=== PATIENT | male | born 1960 | race Caucasian/White ===

== ENCOUNTER 2021-07-14 09:42 | Emergency (ER) | payer BC ==
[~2021-07-14] VITALS: Ht 162.6 cm; Wt 72.0 kg
[2021-07-14 09:55] VITALS: BP 150/82
[2021-07-14 11:08] LABS: BASOPHILS % 0.4 % (0.0-2.0); EOSINOPHILS % 1.2 % (0.0-5.0); HEMATOCRIT. 37.7 % (42.0-52.0); LYMPHOCYTES % 24.2 % (20.0-50.0); MEAN CORPUSCULAR HEMOGLOBIN 29.6 pg (28.0-32.0); MEAN CORPUSCULAR VOLUME 86.3 fL (80.0-94.0); MEAN PLATELET VOLUME 6.8 fl (7.4-10.4); MONOCYTES % 3.7 % (2.0-8.0); NEUTROPHILS % 70.5 % (40.0-76.0); PLATELET 441 x1000/uL (130-400); RED BLOOD CELL COUNT 4.37 mill/uL (4.7-6.1); RED CELL DISTRIBUTION WIDTH 13.4 % (11.6-14.6)
[2021-07-14 11:14] LABS: CHLORIDE 103 mEq/L (98-107)
[2021-07-14 11:20] LABS: CLARITY URINE CLEAR (CLEAR); COLOR URINE YELLOW (YELLOW); KETONES URINE NEGATIVE (NEGATIVE); LEUKOCYTE ESTERASE URINE NEGATIVE (NEGATIVE); NITRITE URINE NEGATIVE (NEGATIVE); OCCULT BLOOD URINE TRACE (NEGATIVE); PROTEIN URINE TRACE (NEGATIVE); SPECIFIC GRAVITY URINE 1.018 (1.005-1.030)
[2021-07-14 11:59] LABS: *AMPHETAMINES SCREEN URINE NEGATIVE (NEGATIVE)
[2021-07-14 12:00] LABS: *BARBITURATES SCREEN URINE NEGATIVE (NEGATIVE); *BENZODIAZEPINES SCREEN URINE NEGATIVE (NEGATIVE); *COCAINE SCREEN URINE NEGATIVE (NEGATIVE); CANNABINOID URINE SCREEN NEGATIVE (NEGATIVE); METHADONE URINE SCREEN NEGATIVE (NEGATIVE); OPIATES URINE SCREEN NEGATIVE (NEGATIVE); PHENCYCLIDINE URINE SCREEN NEGATIVE (NEGATIVE)
[2021-07-14] MEDS ORDERED: VISCOUS LIDOCAINE 2% 15 ML UDC MM STA (15:16)
[2021-07-14] MEDS ORDERED: MAGNESIUM/ALUMINUM HYDROXIDE/SIMETHICONE 30ML UDC PO ONE (15:30)
[2021-07-14] MEDS ORDERED: OMEP20CA14 MT (15:32)
== END 2021-07-14 15:45 | disposition home or self-care (01) ==
LOC: ER 09:42
DX: R10.12 Left upper quadrant pain (principal); I10 Essential (primary) hypertension; E87.1 Hypo-osmolality and hyponatremia; D64.9 Anemia, unspecified; R79.89 Other specified abnormal findings of blood chemistry; Z88.0 Allergy status to penicillin; E78.00 Pure hypercholesterolemia, unspecified
CPT/HCPCS: 36415; 74176; 76700; 80053; 80305; 81003; 85025; 99285

== ENCOUNTER 2021-07-27 10:38 | Inpatient (IN) | payer BC ==
[~2021-07-27] VITALS: Ht 162.6 cm; Wt 68.0 kg
[~2021-07-27 10:38] MED LIST: OMEP20CA14 MT
[2021-07-27 11:34] LABS: BASOPHILS % 0.6 % (0.0-2.0); EOSINOPHILS % 1.1 % (0.0-5.0); HEMATOCRIT. 36.7 % (42.0-52.0); HEMOGLOBIN. 12.7 g/dL (14.0-18.0); LYMPHOCYTES % 18.8 % (20.0-50.0); MEAN CORPUSCULAR HEMOGLOBIN 29.6 pg (28.0-32.0); MEAN CORPUSCULAR VOLUME 85.4 fL (80.0-94.0); MEAN PLATELET VOLUME 6.9 fl (7.4-10.4); MONOCYTES % 3.6 % (2.0-8.0); NEUTROPHILS % 75.9 % (40.0-76.0); PLATELET 419 x1000/uL (130-400); RED CELL DISTRIBUTION WIDTH 13.3 % (11.6-14.6)
[2021-07-27 11:43] LABS: CHLORIDE 102 mEq/L (98-107)
[2021-07-27 11:47] LABS: ETHANOL BLOOD < 10 mg/dL
[2021-07-27 11:52] LABS: CREATINE KINASE 76 IU/L (39-308)
[2021-07-27 11:57] LABS: CLARITY URINE CLEAR (CLEAR); COLOR URINE YELLOW (YELLOW); KETONES URINE TRACE (NEGATIVE); LEUKOCYTE ESTERASE URINE NEGATIVE (NEGATIVE); NITRITE URINE NEGATIVE (NEGATIVE); OCCULT BLOOD URINE 1+ (NEGATIVE); PROTEIN URINE TRACE (NEGATIVE); SPECIFIC GRAVITY URINE 1.023 (1.005-1.030); UROBILINOGEN URINE 0.2 E.U./dL (0.2-1.0)
[2021-07-27] MEDS ORDERED: HYDROCODONE/ACETAMINOPHEN 5/325MG TABLET PO ONE (12:15)
[2021-07-27] MEDS ORDERED: IOHEXOL-350 100 ML BOTTLE ONE (13:12)
[2021-07-27] MEDS ORDERED: GADOTERATE MEGLUMINE 5 MMOL/10 ML VIAL IV ONE (14:27)
[2021-07-27] MEDS ORDERED: ACETAMINOPHEN 650MG SUPP PR PRN (16:15)
[2021-07-27] MEDS ORDERED: LORAZEPAM 0.5MG TABLET PO PRN (16:15)
[2021-07-27] MEDS ORDERED: MAGNESIUM/ALUMINUM HYDROXIDE/SIMETHICONE 30ML UDC PO PRN (16:15)
[2021-07-27] MEDS ORDERED: ONDANSETRON HCL 4MG/2ML INJ IV PRN (16:15)
[2021-07-27] MEDS ORDERED: CLONIDINE 0.1MG TABLET PO PRN (16:15)
[2021-07-27] MEDS ORDERED: ACETAMINOPHEN 325MG TABLET PO PRN (16:15)
[2021-07-27] MEDS ORDERED: GUAIFENESIN 200MG/10ML SUGAR FREE UDC PO PRN (16:15)
[2021-07-27] MEDS ORDERED: DOCUSATE SODIUM 100MG CAPSULE PO PRN (16:15)
[2021-07-27] MEDS ORDERED: IPRATROPIUM/ALBUTEROL 0.5-3(2.5)MG/3ML NEB NEB PRN (16:15)
[2021-07-27] MEDS ORDERED: NA PHOS,M-B/NA PHOS,DI-BA ENEMA 118ML PR PRN (16:15)
[2021-07-27] MEDS ORDERED: DIPHENHYDRAMINE 50MG/ML VIAL IV PRN (16:15)
[2021-07-27] MEDS ORDERED: NALOXONE HCL 0.4MG/ML VIAL IV PRN (16:30)
[2021-07-27 19:17] LABS: HEPATITIS B SURFACE ANTIGEN NEGATIVE
[2021-07-27 20:40] VITALS: BP 146/87
[2021-07-27] MEDS: FAMOTIDINE 20MG TABLET PO SCH (21:57)
[2021-07-27] MEDS: HYDROCODONE/ACETAMINOPHEN 5/325MG TABLET PO PRN (21:58)
[2021-07-27] MEDS ORDERED: LOSA25TA26 MT (22:38)
[2021-07-27] MEDS ORDERED: CYCL10TA7 MT (22:38)
[2021-07-27] MEDS ORDERED: AMLO10TA80 MT (22:38)
[2021-07-27] MEDS ORDERED: INFLUENZA VACCINE 05/PF 0.5 ML SYRINGE IM ONE (22:45)
[2021-07-27] MEDS ORDERED: PNEUMOCOCCAL 23-VAL P-SAC VAC 0.5 ML IM ONE (22:45)
[2021-07-27] MEDS: MORPHINE SULFATE 2 MG/ML CPJ (NOT FOR IM USE) IV PRN (23:36)
[2021-07-28] VITALS: BP 128/76
[2021-07-28 04:00] VITALS: BP 138/87
[2021-07-28 08:02] LABS: BASOPHILS % 0.5 % (0.0-2.0); HEMATOCRIT. 37.2 % (42.0-52.0); LYMPHOCYTES % 16.4 % (20.0-50.0); MEAN CORPUSCULAR HEMOGLOBIN 29.8 pg (28.0-32.0); MEAN CORPUSCULAR VOLUME 85.3 fL (80.0-94.0); MONOCYTES % 4.4 % (2.0-8.0); NEUTROPHILS % 77.7 % (40.0-76.0); PLATELET 418 x1000/uL (130-400); RED BLOOD CELL COUNT 4.36 mill/uL (4.7-6.1); RED CELL DISTRIBUTION WIDTH 13.1 % (11.6-14.6)
[2021-07-28 08:14] LABS: CHLORIDE 101 mEq/L (98-107)
[2021-07-28] MEDS ORDERED: IOHEXOL-300 100 ML BOTTLE ONE (08:52)
[2021-07-28 12:52] VITALS: BP 149/85
[2021-07-28] MEDS: HYDROCODONE/ACETAMINOPHEN 5/325MG TABLET PO PRN (13:04)
[2021-07-28 20:00] VITALS: BP 145/86
[2021-07-28] MEDS: FAMOTIDINE 20MG TABLET PO SCH (21:17)
[2021-07-28] MEDS: MORPHINE SULFATE 2 MG/ML CPJ (NOT FOR IM USE) IV PRN (22:35)
[2021-07-28 23:59] VITALS: BP 132/80
[2021-07-29] MEDS: HYDROCODONE/ACETAMINOPHEN 5/325MG TABLET PO PRN ×2 (03:34→10:29)
[2021-07-29 03:58] VITALS: BP 127/78
[2021-07-29 08:00] VITALS: BP 123/77
[2021-07-29 08:03] LABS: BASOPHILS % 0.2 % (0.0-2.0); EOSINOPHILS % 0.9 % (0.0-5.0); HEMATOCRIT. 37.8 % (42.0-52.0); HEMOGLOBIN. 13.2 g/dL (14.0-18.0); LYMPHOCYTES % 18.9 % (20.0-50.0); MEAN CORPUSCULAR HEMOGLOBIN 29.6 pg (28.0-32.0); MEAN CORPUSCULAR VOLUME 84.8 fL (80.0-94.0); MEAN PLATELET VOLUME 7.1 fl (7.4-10.4); MONOCYTES % 3.9 % (2.0-8.0); NEUTROPHILS % 76.1 % (40.0-76.0); PLATELET 419 x1000/uL (130-400); RED BLOOD CELL COUNT 4.46 mill/uL (4.7-6.1); RED CELL DISTRIBUTION WIDTH 13.4 % (11.6-14.6)
[2021-07-29 08:24] LABS: CHLORIDE 100 mEq/L (98-107)
[2021-07-29 11:42] LABS: CARCINO EMBRYONIC ANTIGEN 1.2 ng/ml
[2021-07-29 12:00] VITALS: BP 133/88
[2021-07-29 12:26] LABS: PROSTRATE SPECIFIC AG TOTAL 540.38 ng/mL (0.0-4.0)
[2021-07-29] MEDS ORDERED: BICALUTAMIDE 50 MG TABLET PO SCH (15:00)
[2021-07-29 15:46] VITALS: BP 133/88
[2021-07-31 08:08] LABS: IMMUNOGLOBULIN A 186 mg/dL (90-386); IMMUNOGLOBULIN G 977 mg/dL (603-1613); IMMUNOGLOBULIN M 53 mg/dL (20-172)
== END 2021-07-29 17:28 | disposition home or self-care (01) | DRG 544 ==
LOC: ER 10:56 → 6WST 15:26 → EDBEDREQ 15:27 → SUPCPDRO 16:06 → ENRESERV 18:44
PROVIDERS: ADMIT Internal Medicine; ATTEND Internal Medicine
DX: C79.51 Secondary malignant neoplasm of bone (principal); M84.88 Other disorders of continuity of bone, other site; I10 Essential (primary) hypertension; D64.9 Anemia, unspecified; G93.89 Other specified disorders of brain; C80.1 Malignant (primary) neoplasm, unspecified; E78.00 Pure hypercholesterolemia, unspecified; E78.5 Hyperlipidemia, unspecified; F17.200 Nicotine dependence, unspecified, uncomplicated; G51.0 Bell's palsy; I25.10 Atherosclerotic heart disease of native coronary artery without angina pectoris; K75.9 Inflammatory liver disease, unspecified; Z88.0 Allergy status to penicillin; Z79.899 Other long term (current) drug therapy
CPT/HCPCS: 36415; 70496; 70498; 70553; 71045; 71270; 74178; 80048; 80053; 80320; 81003; 82378; 82550; 82784; 82962; 83605; 83615; 83880; 84145; 84153; 84443; 84484; 85025; 86334; 86705; 86709; 86803; 87340; 90686; 90732; 93005; 93306; 93970; 97162; 99291; A9577; J2270; Q9967; G0103; G0480

== ENCOUNTER → 2021-08-21 | Outpatient (CLI) | payer BC ==
[~2021-08-21] MED LIST changes: +GADOTERATE MEGLUMINE 5 MMOL/10 ML VIAL IV ONE
== END | disposition home or self-care (01) ==
LOC: NM 07:17
PROVIDERS: ATTEND Internal Medicine Hematology & Oncology
DX: C61 Malignant neoplasm of prostate (principal); C79.51 Secondary malignant neoplasm of bone; C79.89 Secondary malignant neoplasm of other specified sites; S34.139A Unspecified injury to sacral spinal cord, initial encounter; S34.105A Unspecified injury to L5 level of lumbar spinal cord, initial encounter; M48.04 Spinal stenosis, thoracic region; M48.061 Spinal stenosis, lumbar region without neurogenic claudication; M51.27 Other intervertebral disc displacement, lumbosacral region; M79.89 Other specified soft tissue disorders; X58.XXXA Exposure to other specified factors, initial encounter; Y93.89 Activity, other specified; Y92.89 Other specified places as the place of occurrence of the external cause; Y99.8 Other external cause status
CPT/HCPCS: 72157; 72158; 78306; A9503; A9577

== ENCOUNTER 2022-01-02 10:01 | Emergency (ER) | payer BC ==
[~2022-01-02] VITALS: Ht 162.6 cm; Wt 68.0 kg
[~2022-01-02 10:01] MED LIST changes: -GADOTERATE MEGLUMINE 5 MMOL/10 ML VIAL IV ONE
[2022-01-02 10:21] VITALS: BP 150/90
[2022-01-02] MEDS ORDERED: TOPUD PO (12:22)
== END 2022-01-02 12:30 | disposition home or self-care (01) ==
LOC: ER 10:01
DX: G62.9 Polyneuropathy, unspecified (principal)
CPT/HCPCS: 73070; 99283

== ENCOUNTER → 2022-02-28 | Outpatient (CLI) | payer BC ==
[~2022-02-28] MED LIST changes: +GADOTERATE MEGLUMINE 5 MMOL/10 ML VIAL IV ONE; +TOPUD PO
== END | disposition home or self-care (01) ==
LOC: MRI 09:37
PROVIDERS: ATTEND Internal Medicine Hematology & Oncology
DX: C79.51 Secondary malignant neoplasm of bone (principal); C61 Malignant neoplasm of prostate; M54.2 Cervicalgia
CPT/HCPCS: 70553; 72156; A9577

== ENCOUNTER 2022-03-09 21:07 | Emergency (ER) | payer BC ==
[~2022-03-09] VITALS: Ht 162.6 cm; Wt 67.7 kg
[~2022-03-09 21:07] MED LIST changes: -GADOTERATE MEGLUMINE 5 MMOL/10 ML VIAL IV ONE
[2022-03-09 21:29] VITALS: BP 156/84
[2022-03-09] MEDS ORDERED: KETOROLAC 30MG/ML VIAL IV ONE (21:45)
[2022-03-09] MEDS ORDERED: SODIUM CHLORIDE 0.9% 1,000 ML IV ONE (21:45)
[2022-03-09 22:43] LABS: BASOPHILS % 0.4 % (0.0-2.0); EOSINOPHILS % 1.2 % (0.0-5.0); HEMATOCRIT. 32.9 % (42.0-52.0); HEMOGLOBIN. 11.3 g/dL (14.0-18.0); LYMPHOCYTES % 17.5 % (20.0-50.0); MEAN CORPUSCULAR HEMOGLOBIN 30.4 pg (28.0-32.0); MEAN CORPUSCULAR VOLUME 88.6 fL (80.0-94.0); MEAN PLATELET VOLUME 6.9 fl (7.4-10.4); MONOCYTES % 4.1 % (2.0-8.0); NEUTROPHILS % 76.8 % (40.0-76.0); PLATELET 346 x1000/uL (130-400); RED BLOOD CELL COUNT 3.71 mill/uL (4.7-6.1); RED CELL DISTRIBUTION WIDTH 13.7 % (11.6-14.6)
[2022-03-09 22:45] LABS: CLARITY URINE CLEAR (CLEAR); COLOR URINE YELLOW (YELLOW); KETONES URINE NEGATIVE (NEGATIVE); LEUKOCYTE ESTERASE URINE NEGATIVE (NEGATIVE); NITRITE URINE NEGATIVE (NEGATIVE); OCCULT BLOOD URINE TRACE (NEGATIVE); PH URINE 6.5 (4.5-8.0); PROTEIN URINE TRACE (NEGATIVE); SPECIFIC GRAVITY URINE 1.016 (1.005-1.030); UROBILINOGEN URINE 0.2 E.U./dL (0.2-1.0)
[2022-03-09 22:45] LABS: CHLORIDE 98 mEq/L (98-107)
== END 2022-03-09 23:38 | disposition home or self-care (01) ==
LOC: ER 21:07
DX: C79.51 Secondary malignant neoplasm of bone (principal); G89.3 Neoplasm related pain (acute) (chronic); R07.89 Other chest pain; C61 Malignant neoplasm of prostate; Z51.11 Encounter for antineoplastic chemotherapy
CPT/HCPCS: 36415; 80053; 81003; 83690; 85025; 96361; 96374; 99283; J1885; J7030

== ENCOUNTER 2022-03-27 15:06 | Inpatient (IN) | payer BC, MEDICAID ==
[~2022-03-27] VITALS: Ht 162.6 cm; Wt 74.4 kg
[2022-03-27] MEDS ORDERED: MORPHINE SULFATE 2 MG/ML CPJ (NOT FOR IM USE) IV ONE (21:30)
[2022-03-27 21:44] LABS: BASOPHILS % 0.4 % (0.0-2.0); EOSINOPHILS % 0.6 % (0.0-5.0); HEMATOCRIT. 27.1 % (42.0-52.0); HEMOGLOBIN. 9.4 g/dL (14.0-18.0); LYMPHOCYTES % 15.5 % (20.0-50.0); MEAN CORPUSCULAR HEMOGLOBIN 30.3 pg (28.0-32.0); MEAN CORPUSCULAR VOLUME 87.6 fL (80.0-94.0); MEAN PLATELET VOLUME 6.4 fl (7.4-10.4); MONOCYTES % 6.1 % (2.0-8.0); NEUTROPHILS % 77.4 % (40.0-76.0); PLATELET 468 x1000/uL (130-400)
[2022-03-27 21:55] LABS: CHLORIDE 101 mEq/L (98-107)
[2022-03-27 21:57] LABS: PROTHROMBIN TIME 10.6 sec (9.6-11.0)
[2022-03-27] MEDS ORDERED: MORPHINE SULFATE 4 MG/ML CPJ (NOT FOR IM USE) IV ONE (22:15)
[2022-03-27 22:27] LABS: BG BASE EXCESS -0.5 mmol/L (-2.0-2.0); BG DEOXYHEMOGLOBIN 5.6 % (0.0-5.0); BG FRACTION INSPIRED OXYGEN 21; BG HCO3 ACT 21.9 mmol/L (22.0-26.0); BG METHEMOGLOBIN 0.2 % (0.0-1.5); BG OXYGEN SATURATION 94.3 % (92.0-98.5); BG OXYHEMOGLOBIN 93.2 % (94.0-97.0); BG PCO2 29.3 mmHg (35.0-45.0); BG PH 7.492 (7.350-7.450); BG SAMPLE SITE RIGHT RADIAL; BG TOTAL HEMOGLOBIN 12.2 g/dL (12.0-18.0); BG VENT MODE ROOM AIR
[2022-03-28 00:09] LABS: CLARITY URINE CLEAR (CLEAR); COLOR URINE YELLOW (YELLOW); KETONES URINE NEGATIVE (NEGATIVE); LEUKOCYTE ESTERASE URINE NEGATIVE (NEGATIVE); NITRITE URINE NEGATIVE (NEGATIVE); OCCULT BLOOD URINE NEGATIVE (NEGATIVE); PROTEIN URINE 1+ (NEGATIVE)
[2022-03-28] MEDS ORDERED: CALCIUM GLUCONATE 100MG/ML 10ML VIAL IV NR (00:15)
[2022-03-28] MEDS ORDERED: AZITHROMYCIN 500 MG in DEXT 5% WATER 250 ML IV SCH (00:30)
[2022-03-28] MEDS ORDERED: HYDROMORPHONE HCL/PF 2MG/ML CPJ IV ONE ×2 (01:15→02:45)
[2022-03-28] MEDS ORDERED: IOHEXOL-350 100 ML BOTTLE ONE (03:55)
[2022-03-28 04:00] VITALS: BP 126/79
[2022-03-28] MEDS ORDERED: ENOXAPARIN 80MG/0.8ML SYR SUBCUT ONE (04:30)
[2022-03-28 09:00] VITALS: BP 128/80
[2022-03-28] MEDS ORDERED: ONDANSETRON HCL 4MG/2ML INJ IV PRN (09:45)
[2022-03-28] MEDS ORDERED: DOCUSATE SODIUM 100MG CAPSULE PO PRN (09:45)
[2022-03-28] MEDS ORDERED: MAGNESIUM/ALUMINUM HYDROXIDE/SIMETHICONE 30ML UDC PO PRN (09:45)
[2022-03-28] MEDS ORDERED: TRAMADOL 50MG TABLET PO PRN (09:45)
[2022-03-28] MEDS ORDERED: GUAIFENESIN 200MG/10ML SUGAR FREE UDC PO PRN (09:45)
[2022-03-28] MEDS ORDERED: NALOXONE HCL 0.4MG/ML VIAL IV PRN (10:00)
[2022-03-28] MEDS: ENOXAPARIN 40MG/0.4ML SYR SUBCUT SCH ×2 (10:00→11:12)
[2022-03-28] MEDS: SODIUM CHLORIDE 0.45% 1,000 ML IV SCH (11:12)
[2022-03-28 12:00] VITALS: BP_SYST 120; BP_SYST 124; BP_DIAS 77; BP_DIAS 85
[2022-03-28] MEDS ORDERED: IPRATROPIUM/ALBUTEROL 0.5-3(2.5)MG/3ML NEB HHN PRN (12:00)
[2022-03-28] MEDS ORDERED: SODIUM CHLORIDE 3% FOR INH 4ML UD NEB INH NR (14:00)
[2022-03-28] MEDS: ACETYLCYSTEINE 100MG/ML 10% VIAL 4ML INH SCH (14:00)
[2022-03-28 14:43] LABS: BG BASE EXCESS -1.1 mmol/L (-2.0-2.0); BG CARBOXYHEMOGLOBIN 0.2 % (0.5-1.5); BG DEOXYHEMOGLOBIN 2.4 % (0.0-5.0); BG FRACTION INSPIRED OXYGEN 36; BG HCO3 ACT 22.3 mmol/L (22.0-26.0); BG METHEMOGLOBIN 0.1 % (0.0-1.5); BG OXYGEN SATURATION 97.6 % (92.0-98.5); BG OXYHEMOGLOBIN 97.3 % (94.0-97.0); BG PCO2 32.5 mmHg (35.0-45.0); BG PH 7.454 (7.350-7.450); BG PO2 108.6 mmHg (75.0-100.0); BG SAMPLE SITE RIGHT RADIAL; BG TOTAL HEMOGLOBIN 10.8 g/dL (12.0-18.0); BG VENT MODE NASAL CANNULA
[2022-03-28] MEDS: IPRATROPIUM/ALBUTEROL 0.5-3(2.5)MG/3ML NEB HHN SCH ×3 (14:58→20:42)
[2022-03-28 16:00] VITALS: BP 126/79
[2022-03-28] MEDS: HYDROMORPHONE HCL/PF 2MG/ML CPJ IV PRN ×2 (17:55→22:20)
[2022-03-28 20:00] VITALS: BP 118/79
[2022-03-29] VITALS: BP 131/84
[2022-03-29] MEDS: ACETYLCYSTEINE 100MG/ML 10% VIAL 4ML INH SCH ×4 (01:44→21:50)
[2022-03-29] MEDS: IPRATROPIUM/ALBUTEROL 0.5-3(2.5)MG/3ML NEB HHN SCH ×4 (01:44→21:50)
[2022-03-29 04:00] VITALS: BP_SYST 127; BP_SYST 130; BP_DIAS 71; BP_DIAS 81
[2022-03-29] MEDS: SODIUM CHLORIDE 0.45% 1,000 ML IV SCH ×2 (04:29→22:00)
[2022-03-29 08:00] VITALS: BP 118/75
[2022-03-29] MEDS: ENOXAPARIN 40MG/0.4ML SYR SUBCUT SCH (09:00)
[2022-03-29] MEDS: AMLODIPINE 10MG TABLET PO SCH (09:01)
[2022-03-29] MEDS: HYDROMORPHONE HCL/PF 2MG/ML CPJ IV PRN ×2 (09:48→23:35)
[2022-03-29 11:44] LABS: BASOPHILS % 0.2 % (0.0-2.0); EOSINOPHILS % 0.1 % (0.0-5.0); HEMATOCRIT. 27.5 % (42.0-52.0); HEMOGLOBIN. 9.6 g/dL (14.0-18.0); MEAN CORPUSCULAR HEMOGLOBIN 30.1 pg (28.0-32.0); MEAN CORPUSCULAR VOLUME 86.5 fL (80.0-94.0); MEAN PLATELET VOLUME 6.5 fl (7.4-10.4); MONOCYTES % 5.4 % (2.0-8.0); NEUTROPHILS % 84.3 % (40.0-76.0); PLATELET 498 x1000/uL (130-400); RED BLOOD CELL COUNT 3.18 mill/uL (4.7-6.1); RED CELL DISTRIBUTION WIDTH 13.7 % (11.6-14.6)
[2022-03-29 12:00] VITALS: BP 115/75
[2022-03-29 14:00] VITALS: BP 121/74
[2022-03-29] MEDS: HYDROCODONE/ACETAMINOPHEN 10/325MG TABLET PO PRN ×2 (15:03→19:04)
[2022-03-29 15:27] LABS: CHLORIDE 103 mEq/L (98-107)
[2022-03-29 15:35] LABS: HDL CHOLESTEROL 46 mg/dL (40-59); LDL CHOLESTEROL 95 mg/dL (5-100)
[2022-03-29 20:00] VITALS: BP 117/72
[2022-03-30] VITALS: BP 126/79
[2022-03-30] MEDS: IPRATROPIUM/ALBUTEROL 0.5-3(2.5)MG/3ML NEB HHN SCH ×4 (02:25→21:42)
[2022-03-30 04:00] VITALS: BP_SYST 117; BP_SYST 94; BP_DIAS 73; BP_DIAS 80
[2022-03-30] MEDS: HYDROMORPHONE HCL/PF 2MG/ML CPJ IV PRN ×4 (04:21→23:31)
[2022-03-30 08:00] VITALS: BP 132/81
[2022-03-30 08:08] LABS: PROTHROMBIN TIME 11.2 sec (9.6-11.0)
[2022-03-30] MEDS: ACETYLCYSTEINE 100MG/ML 10% VIAL 4ML INH SCH ×3 (08:50→21:41)
[2022-03-30] MEDS: ENOXAPARIN 40MG/0.4ML SYR SUBCUT SCH (09:08)
[2022-03-30] MEDS: HYDROCODONE/ACETAMINOPHEN 10/325MG TABLET PO PRN (09:09)
[2022-03-30] MEDS: AMLODIPINE 10MG TABLET PO SCH (09:10)
[2022-03-30 12:00] VITALS: BP 106/72
[2022-03-30] MEDS: SODIUM CHLORIDE 0.45% 1,000 ML IV SCH (14:15)
[2022-03-30 16:00] VITALS: BP 94/73
[2022-03-30 20:00] VITALS: BP 121/76
[2022-03-31] VITALS: BP 115/72
[2022-03-31] MEDS: IPRATROPIUM/ALBUTEROL 0.5-3(2.5)MG/3ML NEB HHN SCH ×4 (01:01→21:07)
[2022-03-31 04:00] VITALS: BP 117/80
[2022-03-31] MEDS: HYDROMORPHONE HCL/PF 2MG/ML CPJ IV PRN ×5 (04:38→23:27)
[2022-03-31] MEDS: SODIUM CHLORIDE 0.45% 1,000 ML IV SCH ×2 (04:54→20:12)
[2022-03-31] MEDS: ACETYLCYSTEINE 100MG/ML 10% VIAL 4ML INH SCH ×3 (06:00→21:07)
[2022-03-31 08:00] VITALS: BP 118/76
[2022-03-31] MEDS: AMLODIPINE 10MG TABLET PO SCH (09:00)
[2022-03-31] MEDS ORDERED: DIAZEPAM 5 MG TABLET PO NR (10:00)
[2022-03-31] MEDS: DEXAMETHASONE 4MG/ML 1ML VIAL IV SCH ×2 (15:37→18:35)
[2022-03-31 16:00] VITALS: BP 107/70
[2022-03-31] MEDS ORDERED: ENZA40CA MT (16:35)
[2022-03-31 20:00] VITALS: BP 112/67
[2022-03-31] MEDS: XTANDI 40 MG PO SCH (20:12)
[2022-04-01] VITALS (51 sets, daily range): BP systolic 95–161; BP diastolic 44–92
[2022-04-01] MEDS: IPRATROPIUM/ALBUTEROL 0.5-3(2.5)MG/3ML NEB HHN SCH ×3 (01:00→16:01)
[2022-04-01] MEDS: DEXAMETHASONE 4MG/ML 1ML VIAL IV SCH ×5 (01:40→23:51)
[2022-04-01] MEDS: HYDROMORPHONE HCL/PF 2MG/ML CPJ IV PRN ×2 (03:43→07:59)
[2022-04-01] MEDS ORDERED: LIDOCAINE HCL 1%/EPI 1:200,000 30 ML VIAL ONE (08:02)
[2022-04-01] MEDS ORDERED: THROMBIN (BOVINE) 5000 UNITS/VIAL TOP ONE (08:03)
[2022-04-01] MEDS ORDERED: GENTAMICIN SULF 40MG/ML 2ML VIAL ONE (08:03)
[2022-04-01] MEDS: AMLODIPINE 10MG TABLET PO SCH (09:00)
[2022-04-01] MEDS: XTANDI 40 MG PO SCH (09:00)
[2022-04-01 09:58] LABS: BASOPHILS % 0.2 % (0.0-2.0); HEMATOCRIT. 25.5 % (42.0-52.0); HEMOGLOBIN. 8.8 g/dL (14.0-18.0); LYMPHOCYTES % 4.9 % (20.0-50.0); MEAN CORPUSCULAR HEMOGLOBIN 29.9 pg (28.0-32.0); MEAN CORPUSCULAR VOLUME 86.8 fL (80.0-94.0); MEAN PLATELET VOLUME 6.3 fl (7.4-10.4); MONOCYTES % 3.9 % (2.0-8.0); PLATELET 469 x1000/uL (130-400); RED BLOOD CELL COUNT 2.93 mill/uL (4.7-6.1); RED CELL DISTRIBUTION WIDTH 13.8 % (11.6-14.6)
[2022-04-01] MEDS: ACETYLCYSTEINE 100MG/ML 10% VIAL 4ML INH SCH ×2 (10:30→16:01)
[2022-04-01] MEDS ORDERED: SUCCINYLCHOLINE CHLORIDE 200MG/10ML IV ONE (10:43)
[2022-04-01] MEDS ORDERED: ROCURONIUM BROMIDE 10MG/ML VIAL 5ML IV ONE (10:43)
[2022-04-01] MEDS ORDERED: FENTANYL CITRATE/PF 50MCG/ML 2ML VIAL ONE (10:45)
[2022-04-01] MEDS ORDERED: CLINDAMYCIN 600MG PREMIX 50 ML IV ONE (11:49)
[2022-04-01] MEDS ORDERED: GLYCOPYRROLATE 0.2 MG/ML 2ML VIAL ONE ×3 (12:20→12:29)
[2022-04-01] MEDS ORDERED: TRANEXAMIC ACID 1,000 MG in SODIUM CHLORIDE 0.9% 100 ML IV NR ×2 (12:30→13:00)
[2022-04-01] MEDS ORDERED: PROPOFOL 200MG/20ML VIAL IV ONE (12:34)
[2022-04-01] MEDS ORDERED: CLINDAMYCIN 300 MG in DEXTROSE 5% WATER 50 ML IV SCH (12:45)
[2022-04-01] MEDS: DEXT 5%/LACTATED RINGERS 1,000 ML IV SCH ×2 (13:20→21:21)
[2022-04-01] MEDS: MORPHINE SULFATE 4 MG/ML CPJ (NOT FOR IM USE) IV PRN ×6 (13:20→23:51)
[2022-04-01] MEDS ORDERED: NICARDIPINE 100 MG in SODIUM CHLORIDE 0.9% 60 ML IV PRN (14:00)
[2022-04-01 15:13] LABS: BG BASE EXCESS -8.8 mmol/L (-2.0-2.0); BG CARBOXYHEMOGLOBIN 0.2 % (0.5-1.5); BG DEOXYHEMOGLOBIN 0.5 % (0.0-5.0); BG FRACTION INSPIRED OXYGEN 100; BG HCO3 ACT 15.2 mmol/L (22.0-26.0); BG METHEMOGLOBIN 0.7 % (0.0-1.5); BG OXYGEN SATURATION 99.5 % (92.0-98.5); BG OXYHEMOGLOBIN 98.6 % (94.0-97.0); BG PCO2 25.9 mmHg (35.0-45.0); BG PH 7.385 (7.350-7.450); BG SAMPLE SITE ALINE; BG VENT MODE MASK - NRB
[2022-04-01] MEDS: CLINDAMYCIN 300 MG PREMIX 50 ML IV SCH ×2 (16:42→21:21)
[2022-04-01] MEDS: PANTOPRAZOLE SODIUM 40 MG/VIAL IV SCH (16:42)
[2022-04-01] MEDS ORDERED: MORPHINE SULFATE 2 MG/ML CPJ (NOT FOR IM USE) IV NR (16:45)
[2022-04-01] MEDS: HYDROCODONE/ACETAMINOPHEN 7.5/325MG TABLET PO PRN (17:10)
[2022-04-02] VITALS (88 sets, daily range): BP systolic 90–135; BP diastolic 28–88
[2022-04-02] MEDS: MORPHINE SULFATE 4 MG/ML CPJ (NOT FOR IM USE) IV PRN ×6 (02:37→21:14)
[2022-04-02] MEDS: CLINDAMYCIN 300 MG PREMIX 50 ML IV SCH ×3 (05:13→21:14)
[2022-04-02] MEDS: DEXAMETHASONE 4MG/ML 1ML VIAL IV SCH ×2 (05:13→12:08)
[2022-04-02 05:43] LABS: HEMOGLOBIN. 7.1 g/dL (14.0-18.0); MEAN PLATELET VOLUME 6.6 fl (7.4-10.4); PLATELET 405 x1000/uL (130-400); RED BLOOD CELL COUNT 2.37 mill/uL (4.7-6.1); RED CELL DISTRIBUTION WIDTH 14.4 % (11.6-14.6)
[2022-04-02 06:06] LABS: HEMATOCRIT. 20.6 % (42.0-52.0)
[2022-04-02] MEDS: HYDROMORPHONE HCL/PF 2MG/ML CPJ IV PRN ×4 (07:42→23:13)
[2022-04-02] MEDS: IPRATROPIUM/ALBUTEROL 0.5-3(2.5)MG/3ML NEB HHN SCH ×3 (08:15→20:37)
[2022-04-02] MEDS: ACETYLCYSTEINE 200MG/ML 20% VIAL 4ML INH SCH ×2 (08:15→14:03)
[2022-04-02] MEDS: AMLODIPINE 10MG TABLET PO SCH (08:52)
[2022-04-02] MEDS: PANTOPRAZOLE SODIUM 40 MG/VIAL IV SCH (08:52)
[2022-04-02] MEDS: DEXT 5%/LACTATED RINGERS 1,000 ML IV SCH ×2 (08:53→19:21)
[2022-04-02] MEDS: XTANDI 40 MG PO SCH (08:54)
[2022-04-02 20:20] LABS: PLATELET ESTIMATE INCREASED
[2022-04-03] VITALS (67 sets, daily range): BP systolic 93–153; BP diastolic 43–124
[2022-04-03] MEDS: ACETYLCYSTEINE 200MG/ML 20% VIAL 4ML INH SCH ×2 (01:08→14:38)
[2022-04-03] MEDS: IPRATROPIUM/ALBUTEROL 0.5-3(2.5)MG/3ML NEB HHN SCH ×4 (01:09→20:21)
[2022-04-03] MEDS: HYDROMORPHONE HCL/PF 2MG/ML CPJ IV PRN ×6 (02:06→22:22)
[2022-04-03] MEDS: DEXT 5%/LACTATED RINGERS 1,000 ML IV SCH (05:32)
[2022-04-03] MEDS: CLINDAMYCIN 300 MG PREMIX 50 ML IV SCH ×2 (05:33→13:03)
[2022-04-03 06:48] LABS: CHLORIDE 108 mEq/L (98-107)
[2022-04-03 06:54] LABS: HEMATOCRIT. 30.5 % (42.0-52.0); HEMOGLOBIN. 10.3 g/dL (14.0-18.0); MEAN CORPUSCULAR HEMOGLOBIN 29.3 pg (28.0-32.0); MEAN PLATELET VOLUME 6.7 fl (7.4-10.4); PLATELET 400 x1000/uL (130-400); RED BLOOD CELL COUNT 3.51 mill/uL (4.7-6.1); RED CELL DISTRIBUTION WIDTH 15.1 % (11.6-14.6)
[2022-04-03 07:07] LABS: PHOSPHORUS 1.2 mg/dL (2.5-4.9)
[2022-04-03] MEDS ORDERED: LIDOCAINE HCL/PF 1% 10 MG/ML 5ML VIAL ONE (07:50)
[2022-04-03] MEDS: AMLODIPINE 10MG TABLET PO SCH (08:08)
[2022-04-03] MEDS: PANTOPRAZOLE SODIUM 40 MG/VIAL IV SCH (08:08)
[2022-04-03] MEDS: XTANDI 40 MG PO SCH (08:08)
[2022-04-03] MEDS: MORPHINE SULFATE 4 MG/ML CPJ (NOT FOR IM USE) IV PRN (08:08)
[2022-04-03] MEDS: ACETAMINOPHEN 325MG TABLET PO PRN (10:06)
[2022-04-03] MEDS ORDERED: SODIUM BICARBONATE 4% (2.4MEQ) 5ML VIAL IV ONE (10:33)
[2022-04-03 10:39] LABS: BG BASE EXCESS -3.5 mmol/L (-2.0-2.0); BG CARBOXYHEMOGLOBIN 0.3 % (0.5-1.5); BG DEOXYHEMOGLOBIN 2.4 % (0.0-5.0); BG FRACTION INSPIRED OXYGEN 70; BG HCO3 ACT 19.9 mmol/L (22.0-26.0); BG METHEMOGLOBIN 0.3 % (0.0-1.5); BG OXYGEN SATURATION 97.6 % (92.0-98.5); BG PCO2 31.1 mmHg (35.0-45.0); BG PH 7.424 (7.350-7.450); BG PO2 92.9 mmHg (75.0-100.0); BG SAMPLE SITE RIGHT RADIAL; BG TOTAL HEMOGLOBIN 12.5 g/dL (12.0-18.0); BG VENT MODE MASK - SIMPLE
[2022-04-03 14:47] LABS: NUCLEATED RED BLOOD CELLS 2 /100 WBC; PLATELET ESTIMATE INCREASED
[2022-04-03] MEDS ORDERED: LORAZEPAM 2MG/ML CPJ IV NR (15:15)
[2022-04-03] MEDS: METHYLPREDNISOLONE SOD SUCC 40 MG/ML VIAL IV SCH ×2 (15:31→21:27)
[2022-04-03 16:38] LABS: BG BASE EXCESS -6.4 mmol/L (-2.0-2.0); BG CARBOXYHEMOGLOBIN 0.3 % (0.5-1.5); BG FRACTION INSPIRED OXYGEN 100; BG HCO3 ACT 17.2 mmol/L (22.0-26.0); BG METHEMOGLOBIN 0.3 % (0.0-1.5); BG OXYHEMOGLOBIN 98.4 % (94.0-97.0); BG PH 7.392 (7.350-7.450); BG PO2 172.6 mmHg (75.0-100.0); BG SAMPLE SITE LEFT RADIAL; BG TOTAL HEMOGLOBIN 12.4 g/dL (12.0-18.0); BG VENT MODE MASK - BIPAP
[2022-04-03] MEDS: LORAZEPAM 2MG/ML CPJ IV PRN (19:13)
[2022-04-04] VITALS (55 sets, daily range): BP systolic 58–152; BP diastolic 16–86
[2022-04-04] MEDS: IPRATROPIUM/ALBUTEROL 0.5-3(2.5)MG/3ML NEB HHN SCH ×4 (01:43→20:21)
[2022-04-04] MEDS: ACETYLCYSTEINE 200MG/ML 20% VIAL 4ML INH SCH ×3 (01:43→16:14)
[2022-04-04] MEDS: HYDROMORPHONE HCL/PF 2MG/ML CPJ IV PRN ×5 (03:37→22:52)
[2022-04-04] MEDS: LORAZEPAM 2MG/ML CPJ IV PRN (05:15)
[2022-04-04] MEDS: METHYLPREDNISOLONE SOD SUCC 40 MG/ML VIAL IV SCH ×3 (05:21→21:33)
[2022-04-04] MEDS: XTANDI 40 MG PO SCH (08:20)
[2022-04-04] MEDS: PANTOPRAZOLE SODIUM 40 MG/VIAL IV SCH (08:20)
[2022-04-04] MEDS: AMLODIPINE 10MG TABLET PO SCH (08:21)
[2022-04-04] MEDS: MORPHINE SULFATE 4 MG/ML CPJ (NOT FOR IM USE) IV PRN ×2 (16:54→21:33)
[2022-04-05] VITALS (8 sets, daily range): BP systolic 123–143; BP diastolic 61–81
[2022-04-05] MEDS: MORPHINE SULFATE 4 MG/ML CPJ (NOT FOR IM USE) IV PRN ×4 (00:49→20:10)
[2022-04-05] MEDS: ACETYLCYSTEINE 200MG/ML 20% VIAL 4ML INH SCH ×3 (01:31→14:00)
[2022-04-05] MEDS: IPRATROPIUM/ALBUTEROL 0.5-3(2.5)MG/3ML NEB HHN SCH ×4 (01:34→20:44)
[2022-04-05] MEDS: METHYLPREDNISOLONE SOD SUCC 40 MG/ML VIAL IV SCH ×3 (05:15→22:13)
[2022-04-05] MEDS: HYDROMORPHONE HCL/PF 2MG/ML CPJ IV PRN ×4 (09:24→23:46)
[2022-04-05] MEDS: HYDROCODONE/ACETAMINOPHEN 7.5/325MG TABLET PO PRN (11:57)
[2022-04-05] MEDS: AMLODIPINE 10MG TABLET PO SCH (11:57)
[2022-04-05] MEDS: PANTOPRAZOLE SODIUM 40 MG/VIAL IV SCH (12:18)
[2022-04-05] MEDS: XTANDI 40 MG PO SCH (14:36)
[2022-04-05] MEDS: LORAZEPAM 2MG/ML CPJ IV PRN (21:30)
[2022-04-06] VITALS (7 sets, daily range): BP systolic 116–137; BP diastolic 68–81
[2022-04-06] MEDS: ACETYLCYSTEINE 200MG/ML 20% VIAL 4ML INH SCH ×2 (00:59→09:32)
[2022-04-06] MEDS: IPRATROPIUM/ALBUTEROL 0.5-3(2.5)MG/3ML NEB HHN SCH ×4 (01:02→20:21)
[2022-04-06] MEDS: MORPHINE SULFATE 4 MG/ML CPJ (NOT FOR IM USE) IV PRN ×6 (01:41→17:34)
[2022-04-06] MEDS: HYDROMORPHONE HCL/PF 2MG/ML CPJ IV PRN ×3 (03:39→22:11)
[2022-04-06] MEDS: METHYLPREDNISOLONE SOD SUCC 40 MG/ML VIAL IV SCH ×3 (06:04→22:11)
[2022-04-06] MEDS: PANTOPRAZOLE SODIUM 40 MG/VIAL IV SCH (08:59)
[2022-04-06] MEDS: AMLODIPINE 10MG TABLET PO SCH (08:59)
[2022-04-06] MEDS: XTANDI 40 MG PO SCH (08:59)
[2022-04-06] MEDS: LORAZEPAM 2MG/ML CPJ IV PRN (10:45)
[2022-04-07] VITALS (8 sets, daily range): BP systolic 119–139; BP diastolic 62–92
[2022-04-07] MEDS: HYDROMORPHONE HCL/PF 2MG/ML CPJ IV PRN ×4 (01:14→11:29)
[2022-04-07] MEDS: IPRATROPIUM/ALBUTEROL 0.5-3(2.5)MG/3ML NEB HHN SCH ×4 (03:19→20:29)
[2022-04-07] MEDS: ACETYLCYSTEINE 200MG/ML 20% VIAL 4ML INH SCH (03:20)
[2022-04-07] MEDS: METHYLPREDNISOLONE SOD SUCC 40 MG/ML VIAL IV SCH ×2 (05:28→14:00)
[2022-04-07] MEDS: XTANDI 40 MG PO SCH (09:00)
[2022-04-07] MEDS: PANTOPRAZOLE SODIUM 40 MG/VIAL IV SCH (09:02)
[2022-04-07] MEDS: AMLODIPINE 10MG TABLET PO SCH (09:03)
[2022-04-07] MEDS: MORPHINE SULFATE 4 MG/ML CPJ (NOT FOR IM USE) IV PRN ×6 (12:08→23:29)
[2022-04-07] MEDS ORDERED: NALOXONE HCL 0.4MG/ML VIAL IV PRN (15:00)
[2022-04-07] MEDS: ACETYLCYSTEINE 100MG/ML 10% VIAL 4ML INH SCH (15:53)
[2022-04-07] MEDS: LORAZEPAM 2MG/ML CPJ IV PRN (20:34)
[2022-04-08] VITALS (12 sets, daily range): BP systolic 115–135; BP diastolic 58–84
[2022-04-08] MEDS: IPRATROPIUM/ALBUTEROL 0.5-3(2.5)MG/3ML NEB HHN SCH ×4 (01:59→20:00)
[2022-04-08] MEDS: MORPHINE SULFATE 4 MG/ML CPJ (NOT FOR IM USE) IV PRN ×9 (02:05→21:55)
[2022-04-08] MEDS: LORAZEPAM 2MG/ML CPJ IV PRN (05:32)
[2022-04-08] MEDS: ACETYLCYSTEINE 100MG/ML 10% VIAL 4ML INH SCH (08:23)
[2022-04-08] MEDS: AMLODIPINE 10MG TABLET PO SCH (09:34)
[2022-04-08] MEDS: PANTOPRAZOLE SODIUM 40 MG/VIAL IV SCH (09:34)
[2022-04-08] MEDS: XTANDI 40 MG PO SCH (09:34)
[2022-04-08] MEDS: METHYLPREDNISOLONE SOD SUCC 40 MG/ML VIAL IV SCH ×2 (13:28→21:56)
[2022-04-09] VITALS (13 sets, daily range): BP systolic 71–139; BP diastolic 42–81
[2022-04-09] MEDS: MORPHINE SULFATE 4 MG/ML CPJ (NOT FOR IM USE) IV PRN ×12 (00:15→22:57)
[2022-04-09] MEDS: IPRATROPIUM/ALBUTEROL 0.5-3(2.5)MG/3ML NEB HHN SCH ×4 (01:10→21:04)
[2022-04-09] MEDS: METHYLPREDNISOLONE SOD SUCC 40 MG/ML VIAL IV SCH ×3 (06:40→22:58)
[2022-04-09] MEDS: PANTOPRAZOLE SODIUM 40 MG/VIAL IV SCH (08:41)
[2022-04-09] MEDS: AMLODIPINE 10MG TABLET PO SCH (08:41)
[2022-04-09] MEDS: XTANDI 40 MG PO SCH (08:53)
[2022-04-09] MEDS: ACETAMINOPHEN 325MG TABLET PO PRN (15:55)
[2022-04-10] VITALS (19 sets, daily range): BP systolic 113–148; BP diastolic 58–91
[2022-04-10] MEDS: IPRATROPIUM/ALBUTEROL 0.5-3(2.5)MG/3ML NEB HHN SCH ×4 (01:05→19:50)
[2022-04-10] MEDS: MORPHINE SULFATE 4 MG/ML CPJ (NOT FOR IM USE) IV PRN ×7 (01:50→17:29)
[2022-04-10] MEDS: METHYLPREDNISOLONE SOD SUCC 40 MG/ML VIAL IV SCH ×3 (06:50→21:19)
[2022-04-10] MEDS: PANTOPRAZOLE SODIUM 40 MG/VIAL IV SCH (09:07)
[2022-04-10] MEDS: AMLODIPINE 10MG TABLET PO SCH (09:07)
[2022-04-10] MEDS: XTANDI 40 MG PO SCH (09:16)
[2022-04-10] MEDS: HYDROMORPHONE HCL/PF 2MG/ML CPJ IV PRN (21:19)
[2022-04-11] VITALS (7 sets, daily range): BP systolic 87–131; BP diastolic 45–69
[2022-04-11] MEDS: HYDROMORPHONE HCL/PF 2MG/ML CPJ IV PRN (01:28)
[2022-04-11] MEDS: IPRATROPIUM/ALBUTEROL 0.5-3(2.5)MG/3ML NEB HHN SCH (02:09)
[2022-04-11] MEDS: METHYLPREDNISOLONE SOD SUCC 40 MG/ML VIAL IV SCH (06:22)
== END 2022-04-11 08:26 | DRG 28 ==
LOC: ER 15:06 → MICUSO 03-28 05:22 → 7EST 03-28 08:52 → MICUSO 04-01 13:15 → 6EST 04-05 01:25 → 5EST 04-06 15:45
PROVIDERS: ADMIT Internal Medicine; ATTEND Internal Medicine
PROC: 0W993ZZ Drainage of Right Pleural Cavity, Percutaneous Approach (ICD-10-PCS; 2022-03-30)
PROC: 00BX0ZZ Excision of Thoracic Spinal Cord, Open Approach (ICD-10-PCS; principal; 2022-04-01)
PROC: 00NX0ZZ Release Thoracic Spinal Cord, Open Approach (ICD-10-PCS; 2022-04-01)
PROC: 30233N1 Transfusion of Nonautologous Red Blood Cells into Peripheral Vein, Percutaneous Approach (ICD-10-PCS; 2022-04-02)
PROC: B54MZZA Ultrasonography of Right Upper Extremity Veins, Guidance (ICD-10-PCS; 2022-04-03)
PROC: 05HY33Z Insertion of Infusion Device into Upper Vein, Percutaneous Approach (ICD-10-PCS; 2022-04-03)
PROC: 0W993ZZ Drainage of Right Pleural Cavity, Percutaneous Approach (ICD-10-PCS; 2022-04-03)
PROC: 5A09357 Assistance with Respiratory Ventilation, Less than 24 Consecutive Hours, Continuous Positive Airway Pressure (ICD-10-PCS; 2022-04-05)
PROC: 5A09457 Assistance with Respiratory Ventilation, 24-96 Consecutive Hours, Continuous Positive Airway Pressure (ICD-10-PCS; 2022-04-06)
PROC: 5A09457 Assistance with Respiratory Ventilation, 24-96 Consecutive Hours, Continuous Positive Airway Pressure (ICD-10-PCS; 2022-04-09)
DX: C79.49 Secondary malignant neoplasm of other parts of nervous system (principal); J96.01 Acute respiratory failure with hypoxia; C78.00 Secondary malignant neoplasm of unspecified lung; C79.51 Secondary malignant neoplasm of bone; E44.0 Moderate protein-calorie malnutrition; E87.1 Hypo-osmolality and hyponatremia; J91.0 Malignant pleural effusion; N13.30 Unspecified hydronephrosis; G82.20 Paraplegia, unspecified; Z66 Do not resuscitate; E78.00 Pure hypercholesterolemia, unspecified; I10 Essential (primary) hypertension; F17.210 Nicotine dependence, cigarettes, uncomplicated; R59.0 Localized enlarged lymph nodes; C61 Malignant neoplasm of prostate; D64.9 Anemia, unspecified; M48.02 Spinal stenosis, cervical region; M48.03 Spinal stenosis, cervicothoracic region; Z20.822 Contact with and (suspected) exposure to COVID-19; M48.04 Spinal stenosis, thoracic region; Z88.0 Allergy status to penicillin; Z79.899 Other long term (current) drug therapy; Z68.28 Body mass index [BMI] 28.0-28.9, adult
CPT/HCPCS: 32555; 36415; 36573; 36600; 71045; 71275; 72070; 72141; 72146; 72148; 74177; 76000; 80048; 80053; 80061; 81003; 82040; 82375; 82805; 83615; 83735; 83880; 84100; 84153; 84484; 85025; 86850; 86900; 86920; 87426; 88108; 88331; 93005; 93306; 93970; 94640; 94660; 95925; 95926; 95928; 95929; 97110; 97162; 97166; 97530; 99285; A6261; C1725; C1893; C9113; J0330; J0456; J0610; J1100; J1170; J1580; J1650; J2060; J2270; J2704; J2920; J3010; J3490; J7050; J7060; J7121; J7608; P9016; Q9967; G0103